=== PATIENT | male | born 1965 | race American Indian/Alaskan Native ===

== ENCOUNTER 2019-03-16 20:39 | Inpatient (IN) | payer MEDICARE ==
[2019-03-16 21:28] LABS: Calcium 9.4 mg/dL (8.4-10.2)
[2019-03-16 21:30] LABS: Hematocrit 28.7 % (35.5-45.6); Hemoglobin 9.3 gm/dl (11.8-15.2); Mean Corpuscular HGB Conc 33 % (32-34); Mean Corpuscular Volume 93 fl (84-94); Platelet Count 264 K/mm3 (140-440); Red Blood Count 3.07 M/mm3 (3.65-5.03); Red Cell Distribution Width 17.5 % (13.2-15.2)
[2019-03-16 21:48] LABS: Bilirubin,Urine NEG (Negative); Blood,Urine SM (Negative); Color,Urine Yellow (Yellow); Hyaline Casts,Urine 1 /LPF; Mucus,Urine FEW /HPF
[2019-03-16] MEDS ORDERED: NACL 0.9% 1000 ML 1,000 ML IV ONE (21:56)
[2019-03-16 22:26] LABS: Band Neutrophils # (Manual) 0.1 K/mm3; Basophils % (Manual) 0 % (0.0-1.8); Total Cells Counted 100
[2019-03-16 22:27] LABS: Stomatocytes 1+
[2019-03-16 22:30] LABS: Hypochromasia 1+; Ovalocytes Few
[2019-03-16 22:31] LABS: Anisocytosis 1+; Platelet Estimate Consistent w Auto
--- NOTE | 2019-03-16 22:35 | Emergency Department Report ---
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 Patient is a neck detention and when he did not come to dinner this evening the staff members at the Center as well as other re sidents became concerned. This is very unlike the patient. Patient only walks with a cane and unassisted. Patient was found in his room having increased weakness and difficulty standing. Patient was unable to hold his body weight up unsupported and paramedics were called. Family has met the patient here in the emergency department. His brother states that he has no additional deficits from his baseline while he's lying in the bed. Patient is able to squeeze and budget technician my hand with his left upper extremity and with good strength and is able to move his left lower extremity as well. Patient is at his baseline as far as his mental status. Patient was unable to stand unassisted and did show quite a bit of weakness which his brother states it is not his norm. Severity scale (0 -10): 0 ED Review of Systems ROS: Stated complaint: WEAKNESS Other details as noted in HPI Comment: All other systems reviewed and negative ED Past Medical Hx - Past Medical History Previous Medical History?: Yes Hx Hypertension: Yes Hx CVA: Yes (right side deficits) Hx Seizures: Yes - Surgical History Past Surgical History?: Yes ED Physical Exam - General Limitations: Physical Limitation General appearance: alert, in no apparent distress, other (pale) - Head Head exam: Present: atraumatic, normocephalic - Eye Eye exam: Present: normal appearance, PERRL, EOMI - ENT ENT exam: Present: mucous membranes moist - Neck Neck exam: Present: normal inspection - Respiratory Respiratory exam: Present: normal lung sounds bilaterally. Absent: respiratory distress, wheezes, rales, rhonchi - Cardiovascular Cardiovascular Exam: Present: regular rate, normal rhythm. Absent: systolic murmur, diastolic murmur, rubs, gallop - GI/Abdominal GI/Abdominal exam: Present: soft, normal bowel sounds. Absent: distended, tenderness, guarding, rebound - Rectal Rectal exam: Present: deferred - Extremities Exam Extremities exam: Present: normal inspection - Back Exam Back exam: Present: normal inspection - Neurological Exam Neurological exam: Present: alert, oriented X3, CN II-XII intact, other (patient's right upper extremities shows contractions. Patient is able to speak but his vocabulary is limited secondary to his previous stroke. Patient has 5 out of 5 strength in the left upper and lower extremity. He is able to raise the right lower extremity off the bed against gravity which is at his baseline.) - Psychiatric Psychiatric exam: Present: normal affect, normal mood - Skin Skin exam: Present: warm, dry, intact, normal color. Absent: rash ED Course Vital Signs 03/16/19 20:56 Temperature 98.8 F Pulse Rate 75 Respiratory 16 Rate Blood Pressure 117/59 [Left] O2 Sat by Pulse 97 Oximetry ED Medical Decision Making - Lab Data Result diagrams: 03/16/19 21:00 03/16/19 21:00 Lab Results 03/16/19 03/16/19 03/16/19 Range/Units 21:00 21:00 Unknown WBC 10.2 (4.5-11.0) K/mm3 RBC 3.07 L (3.65-5.03) M/mm3 Hgb 9.3 L (11.8-15.2) gm/dl Hct 28.7 L (35.5-45.6) % MCV 93 (84-94) fl MCH 30 (28-32) pg MCHC 33 (32-34) % RDW 17.5 H (13.2-15.2) % Plt Count 264 (140-440) K/mm3 [place] % (Auto) Net Software Architect Add Manual Diff Complete Total Counted 100 Seg Neuts % (Manual) 56.0 (40.0-70.0) % Band Neutrophils % 1.0 % Lymphocytes % (Manual) 16.0 (13.4-35.0) % Reactive Lymphs % (Man) 0 % Monocytes % (Manual) 26.0 H (0.0-7.3) % Eosinophils % (Manual) 1.0 (0.0-4.3) % Basophils % (Manual) 0 (0.0-1.8) % Metamyelocytes % 0 % Myelocytes % 0 % Promyelocytes % 0 % Blast Cells % 0 % Nucleated RBC % Not Reportable Seg Neutrophils # Man 5.7 (1.8-7.7) K/mm3 Band Neutrophils # 0.1 K/mm3 Lymphocytes # (Manual) 1.6 (1.2-5.4) K/mm3 Abs React Lymphs (Man) 0.0 K/mm3 Monocytes # (Manual) 2.7 H (0.0-0.8) K/mm3 Eosinophils # (Manual) 0.1 (0.0-0.4) K/mm3 Basophils # (Manual) 0.0 (0.0-0.1) K/mm3 Metamyelocytes # 0.0 K/mm3 Myelocytes # 0.0 K/mm3 Promyelocytes # 0.0 K/mm3 Blast Cells # 0.0 K/mm3 WBC Morphology Not Reportable Hypersegmented Neuts Not Reportable Hyposegmented Neuts Not Reportable Hypogranular Neuts Not Reportable Smudge Cells Not Reportable Toxic Granulation Not Reportable Toxic Vacuolation Not Reportable Dohle Bodies Not Reportable Pelger-Huet Anomaly Not Reportable Huma Rods Not Reportable Platelet Estimate Consistent w auto Clumped Platelets Not Reportable Plt Clumps, EDTA Not Reportable Large Platelets Not Reportable Giant Platelets Not Reportable Platelet Satelliting Not Reportable Plt Morphology Comment Not Reportable RBC Morphology Not Reportable Dimorphic RBCs Not Reportable Polychromasia Not Reportable Hypochromasia 1+ Poikilocytosis Not Reportable Anisocytosis 1+ Microcytosis Not Reportable Macrocytosis Not Reportable Spherocytes Not Reportable Pappenheimer Bodies Not Reportable Sickle Cells Not Reportable Target Cells Not Reportable Tear Drop Cells Not Reportable Ovalocytes Few Stomatocytes 1+ Helmet Cells Not Reportable [place] Bodies Not Reportable [place] Rings Not Reportable [place] Cells Not Reportable Bite Cells Not Reportable Crenated Cell Not Reportable Elliptocytes Not Reportable Acanthocytes (Spur) Not Reportable Rouleaux Not Reportable Hemoglobin C Crystals Not Reportable Schistocytes Not Reportable Malaria parasites Not Reportable Satinder Bodies Not Reportable Hem Pathologist Commnt No Sodium 142 (137-145) mmol/L Potassium 4.4 (3.6-5.0) mmol/L Chloride 101.2 (98-107) mmol/L Carbon Dioxide 29 (22-30) mmol/L Anion Gap 16 mmol/L BUN 33 H (9-20) mg/dL Creatinine 2.0 H (0.8-1.5) mg/dL Estimated GFR 43 ml/min BUN/Creatinine Ratio 17 % Glucose 115 H (75-100) mg/dL Calcium 9.4 (8.4-10.2) mg/dL Urine Color Yellow (Yellow) Urine Turbidity Slightly-cloudy (Clear) Urine pH 5.0 (5.0-7.0) Ur Specific [place] 1.019 (1.003-1.030) Urine Protein 30 mg/dl (Negative) mg/dL Urine Glucose (UA) Neg (Negative) mg/dL Urine Ketones Tr (Negative) mg/dL Urine Blood Sm (Negative) Urine Nitrite Neg (Negative) Urine Bilirubin Neg (Negative) Urine Urobilinogen 2.0 (<2.0) mg/dL Ur Leukocyte Esterase Neg (Negative) Urine WBC (Auto) 1.0 (0.0-6.0) /HPF Urine RBC (Auto) 2.0 (0.0-6.0) /HPF U Epithel Cells (Auto) < 1.0 (0-13.0) /HPF Hyaline Casts 1 /LPF Urine Mucus Few /HPF - Medical Decision Making Patient's weakness and fatigue likely secondary to acute kidney injury. His brother states that he has had acute kidney injury in the past however this was corrected with IV fluids during her hospital stay. Patient be admitted to the hospitalist Dr. Rodriguez for IV fluids and monitoring. Critical care attestation.: If time is entered above; I have spent that time in minutes in the direct care of this critically ill patient, excluding procedure time. ED Disposition Clinical Impression: Acute kidney injury, Weakness Disposition: DC-09 OP ADMIT IP TO THIS HOSP Is pt being admited?: Yes Does the pt Need Aspirin: No Condition: Stable Time of Disposition: 22:34
[2019-03-16] MEDS ORDERED: ZOFRAN IV PRN (23:06)
[2019-03-16] MEDS ORDERED: TYLENOL PO PRN (23:06)
[2019-03-16] MEDS ORDERED: SODIUM CHLORIDE FLUSH SYRINGE 10 ML IV PRN (23:06)
--- NOTE | 2019-03-16 23:06 | History and Physical Report ---
History of Present Illness Date of examination: 03/16/19 History of present illness: 53-year-old man a history of CVA with right-sided weakness, aphasia, hypertension was sent to the emergency room for evaluation of generalized weakness. Patient was not seen at breakfast today, they went to check on him. Was found to have acute renal insufficiency Review of systems is unobtainable PAST MEDICAL HISTORY:CVA with right-sided weakness, aphasia, hypertension PAST SURGICAL HISTORY: Unknown SOCIAL HISTORY: Denies alcohol, drugs, tobacco FAMILY HISTORY: Unknown Exam - Physical Exam Narrative exam: General Apperance: The patient lying in bed, breathing comfortable HEENT: Normocephalic, atraumatic. Pupils equally round and reactive to light, EOMI, no sclericterus or JVD or thyromegaly or nodule. , no carotid bruit, mucous membranes moist, no exudate or erythema Heart: S1-S2, regular is rhythm Lungs: Clear to auscultation bilaterally, breathing comfortable Abdomen: Positive bowel sounds, soft, nontender, nondistended, no organomegaly Extremities: No edema cyanosis clubbing Skin: no rash, nodule, warm and dry Neuro: Right hemiparesis, aphasic - Constitutional Vitals: Temp Pulse Resp BP Pulse Ox 98.8 F 75 16 117/59 97 03/16/19 20:56 03/16/19 20:56 03/16/19 20:56 03/16/19 20:56 03/16/19 20:56 Results - Labs CBC & Chem 7: 03/16/19 21:00 03/16/19 21:00 Labs: Abnormal lab results 03/16/19 03/16/19 Range/Units 21:00 21:00 RBC 3.07 L (3.65-5.03) M/mm3 Hgb 9.3 L (11.8-15.2) gm/dl Hct 28.7 L (35.5-45.6) % RDW 17.5 H (13.2-15.2) % Monocytes % (Manual) 26.0 H (0.0-7.3) % Monocytes # (Manual) 2.7 H (0.0-0.8) K/mm3 BUN 33 H (9-20) mg/dL Creatinine 2.0 H (0.8-1.5) mg/dL Glucose 115 H (75-100) mg/dL Assessment and Plan Assessment Acute renal insufficiency Hypertension History of CVA with right hemiparesis, A. fib visit Plan Start IV fluids, consult physical therapy DVT prophylaxis
[2019-03-17 06:40] LABS: Calcium 8.6 mg/dL (8.4-10.2)
[2019-03-17 06:41] LABS: Hematocrit 26.6 % (35.5-45.6); Hemoglobin 8.6 gm/dl (11.8-15.2); Red Blood Count 2.84 M/mm3 (3.65-5.03)
[2019-03-17 06:42] LABS: Basophils # (Auto) 0.1 K/mm3 (0.0-0.1); Basophils % (Auto) 0.6 % (0.0-1.8); Eosinophils % (Auto) 0.1 % (0.0-4.3); Lymphocytes # (Auto) 2.1 K/mm3 (1.2-5.4); Lymphocytes % (Auto) 20.3 % (13.4-35.0); Mean Corpuscular HGB Conc 32 % (32-34); Mean Corpuscular Volume 94 fl (84-94); Mean Platelet Volume 7.5 fl (6-12); Monocytes # (Auto) 1.6 K/mm3 (0.0-0.8); Monocytes % (Auto) 15.4 % (0.0-7.3); Platelet Count 253 K/mm3 (140-440); Red Cell Distribution Width 17.8 % (13.2-15.2)
[2019-03-17] MEDS: NACL 0.45% 1000 ML 1,000 ML IV SCH ×2 (08:28→17:36)
[2019-03-17] MEDS ORDERED: LOVENOX SUB-Q SCH (10:00)
[2019-03-17] MEDS: LOVENOX SUB-Q SCH (11:49)
[2019-03-17] MEDS: SODIUM CHLORIDE FLUSH SYRINGE 10 ML IV SCH ×2 (11:50→23:33)
[2019-03-17] MEDS ORDERED: OLANZAPINE 10 MG PO SCH (13:30)
[2019-03-17] MEDS ORDERED: MYRBETRIQ 25 MG PO SCH (13:30)
[2019-03-17] MEDS ORDERED: BACLOFEN 20 MG PO SCH (13:30)
[2019-03-17] MEDS ORDERED: NON-FORMULARY (Amlodipine 10 MG) PO SCH (13:30)
--- NOTE | 2019-03-17 13:32 | Progress Note ---
Assessment and Plan Generalized weakness, could be from dehydration Acute renal insufficiency maxx vasomotor nephropathy Hypertension, stable History of CVA with right hemiparesis, Plan contt IV fluids, consult physical therapy ordered CT head resumed home meds, DVT prophylaxis Brief History: 53-year-old man a history of CVA with right-sided weakness, aphasia, hypertension was sent to the emergency room for evaluation of generalized weakness. Physical exam: General Apperance: The patient lying in bed, breathing comfortable HEENT: Normocephalic, atraumatic. Pupils equally round and reactive to light, EOMI, no sclericterus or JVD or thyromegaly or nodule. , no carotid bruit, mucous membranes moist, no exudate or erythema Heart: S1-S2, regular is rhythm Lungs: Clear to auscultation bilaterally, breathing comfortable Abdomen: Positive bowel sounds, soft, nontender, nondistended, no organomegaly Extremities: No edema cyanosis clubbing Skin: no rash, nodule, warm and dry Neuro: Right hemiparesis, aphasic Subjective Date of service: 03/17/19 Interval history: patient seen and examined discussed with father at bedside No acute event O/N PT eval and CT head pending Objective - Constitutional Vitals: Vital Signs - 12hr 03/17/19 04:39 Temperature 97.3 F L Pulse Rate 54 L Respiratory 20 Rate Blood Pressure 115/56 O2 Sat by Pulse 96 Oximetry - Labs CBC & Chem 7: 03/17/19 05:51 03/18/19 04:34 Labs: Abnormal lab results 03/16/19 03/16/19 03/17/19 Range/Units 21:00 21:00 05:51 RBC 3.07 L 2.84 L (3.65-5.03) M/mm3 Hgb 9.3 L 8.6 L (11.8-15.2) gm/dl Hct 28.7 L 26.6 L (35.5-45.6) % RDW 17.5 H 17.8 H (13.2-15.2) % [place] % (Auto) 15.4 H (0.0-7.3) % [place] # 1.6 H (0.0-0.8) K/mm3 Monocytes % (Manual) 26.0 H (0.0-7.3) % Monocytes # (Manual) 2.7 H (0.0-0.8) K/mm3 BUN 33 H (9-20) mg/dL Creatinine 2.0 H (0.8-1.5) mg/dL Glucose 115 H (75-100) mg/dL 03/17/19 Range/Units 05:51 RBC (3.65-5.03) M/mm3 Hgb (11.8-15.2) gm/dl Hct (35.5-45.6) % RDW (13.2-15.2) % [place] % (Auto) (0.0-7.3) % [place] # (0.0-0.8) K/mm3 Monocytes % (Manual) (0.0-7.3) % Monocytes # (Manual) (0.0-0.8) K/mm3 BUN 29 H (9-20) mg/dL Creatinine 1.6 H (0.8-1.5) mg/dL Glucose 106 H (75-100) mg/dL
[2019-03-17] MEDS: LIORESAL PO SCH ×2 (17:35→23:32)
[2019-03-17] MEDS: NORVASC PO SCH (17:35)
--- NOTE | 2019-03-17 19:12 | Cat Scan Report ---
PROCEDURE: CT HEAD/BRAIN WO CON TECHNIQUE: CT head without contrast HISTORY: possible CVA COMPARISONS: FINDINGS: There is encephalomalacia of the left temporal and posterior parietal lobes MCA distribution. No acut e intra or extra-axial hemorrhage identified. No evidence for midline shift or mass effect. Ventricle s and sulci are prominent for the patient's age. There is opacification throughout the right mastoid air cells. IMPRESSION: Remote left MCA distribution infarct. Generalized parenchymal volume loss Right mastoiditis which may be acute or chronic.. This document is electronically signed by Max Lucas MD., March 17 2019 07:10:48 PM ET
[2019-03-17] MEDS ORDERED: NON-FORMULARY (Divalproex Er 500 MG) PO SCH (22:00)
[2019-03-18] MEDS: NACL 0.45% 1000 ML 1,000 ML IV SCH ×2 (00:18→07:50)
[2019-03-18 06:28] LABS: BUN/Creatinine Ratio 18; Blood Urea Nitrogen 22 mg/dL (9-20); Calcium 8.3 mg/dL (8.4-10.2); Hemolysis Index 3
[2019-03-18] MEDS: LIORESAL PO SCH (09:19)
[2019-03-18] MEDS: LOVENOX SUB-Q SCH (09:19)
[2019-03-18] MEDS: NORVASC PO SCH (09:19)
[2019-03-18] MEDS: SODIUM CHLORIDE FLUSH SYRINGE 10 ML IV SCH (09:19)
--- NOTE | 2019-03-18 12:50 | Discharge Summary ---
Providers - Providers Date of Admission: 03/16/19 23:06 Date of discharge: 03/18/19 Attending physician: [facility] [place] 03/17/19 07:02 Physical Therapy Evaluation and Treat [CONS] Routine Comment: Reason For Exam: ftt [facility] Reason for admission: weakness Condition: Stable Pertinent studies: CT head: remote left MCA CVA, and chronic volume loss Hospital course: Brief History: 53-year-old man a history of CVA with right-sided weakness, aphasia, hypertension was sent to the emergency room for evaluation of generalized weakness. In the ER noted to have elevated Cr, placed on iv fluid, evaluated by PT and recommended wheel chair. His renal function improved and he was then discharged home in stable condition with his brother. Discharge diagnosis; Generalized weakness, could be from dehydration, PT recommended wheel chair Acute renal insufficiency likely vasomotor nephropathy Hypertension, stable History of CVA with right hemiparesis, cont aspirin and statin Normocytic anemia, outpt follow up Physical exam: General Apperance: The patient lying in bed, breathing comfortable HEENT: Normocephalic, atraumatic. Pupils equally round and reactive to light, EOMI, no sclericterus or JVD or thyromegaly or nodule. , no carotid bruit, mucous membranes moist, no exudate or erythema Heart: S1-S2, regular is rhythm Lungs: Clear to auscultation bilaterally, breathing comfortable Abdomen: Positive bowel sounds, soft, nontender, nondistended, no organomegaly Extremities: No edema cyanosis clubbing Skin: no rash, nodule, warm and dry Neuro: Right hemiparesis, aphasic Disposition: DC-01 TO HOME OR SELFCARE Time spent for discharge: 34 minutes Core Measure Documentation - Palliative Care Palliative Care/ Comfort Measures: Not Applicable - Core Measures Any of the following diagnoses?: stroke - Stroke Discharge Requirements Statin for LDL = or >70 mg/dl on DC: Yes Anticoag for atrial fib/atrial flutter: Not Applicable Antithrombotic for ischemic stroke: Yes Exam - Constitutional Vitals: Temp Pulse Resp BP Pulse Ox 98.1 F 69 20 136/72 100 03/18/19 12:17 03/18/19 12:17 03/18/19 12:17 03/18/19 12:17 03/18/19 12:17 Plan Activity: up only with assistance (use wheel chair ) Weight Bearing Status: Non-Weight Bearing Diet: low fat, low salt Durable Medical Equipment Needed Upon Discharge: Wheelchair Follow up with: PATRICIA MULLER MD [Primary Care Provider] - 7 Days Prescriptions: AtorvaSTATin [Lipitor] 40 mg PO QHS #30 tab Aspirin [Aspirin BABY CHEW TAB] 81 mg PO QDAY #30 tab.chew
[2019-03-18 17:15] VITALS: BP 122/67
== END 2019-03-18 17:30 | disposition home or self-care (01) | DRG 56 ==
LOC: ED 20:39 → 3A 23:06
PROVIDERS: ADMIT Internal Medicine; ATTEND Internal Medicine
DX: I69.351 Hemiplegia and hemiparesis following cerebral infarction affecting right dominant side (principal); N17.0 Acute kidney failure with tubular necrosis; R47.01 Aphasia; E86.0 Dehydration; I10 Essential (primary) hypertension; D64.9 Anemia, unspecified
CPT/HCPCS: 36415; 70450; 80048; 81001; 82962; 85007; 85025; 94760; G0378; J1650; J7030

== ENCOUNTER 2019-04-30 10:04 | Outpatient (CLI) | payer MEDICARE ==
[2019-04-30] MEDS ORDERED: XYLOCAINE TOPICAL 4% TP ONE (10:30)
== END 2019-04-30 10:05 | disposition home or self-care (01) ==
LOC: WOUND 10:04
PROVIDERS: ATTEND Surgery
DX: E11.622 Type 2 diabetes mellitus with other skin ulcer (principal); L98.411 Non-pressure chronic ulcer of buttock limited to breakdown of skin; L89.42 Pressure ulcer of contiguous site of back, buttock and hip, stage 2; L89.012 Pressure ulcer of right elbow, stage 2; L98.491 Non-pressure chronic ulcer of skin of other sites limited to breakdown of skin; I63.30 Cerebral infarction due to thrombosis of unspecified cerebral artery; I10 Essential (primary) hypertension; Z86.73 Personal history of transient ischemic attack (TIA), and cerebral infarction without residual deficits
CPT/HCPCS: 99215; G0463